=== PATIENT | male | born 1965 | race Two or more races ===

== ENCOUNTER 2017-01-30 11:58 | Inpatient (IN) | payer MEDICAID ==
[~2017-01-30] VITALS: Ht 175.3 cm; Wt 66.7 kg
--- NOTE | 2017-01-30 12:32 | Emergency Room Report ---
History of Present Illness General Chief Complaint: Chest Pain Source: Patient Present Illness HPI 51YOM walk in with 2 days left arm/leg weakness "like its asleep." No facial droop or slurred speech Also with 1 day of intermittent substernal non-radiating chest pain and dizziness No assoc SOB, nausea/vomiting Denies other medical problems, previous PR, CVA Allergies: Coded Allergies: No Known Allergies (Unverified , 01/30/17) Patient History Past Medical History: none Past Surgical History: none Pertinent Family History: none Social History: Denies: alcohol use, drug use, smoking Immunizations: UTD Reviewed Nursing Documentation: PMH: Agreed, PSxH: Agreed Nursing Documentation-PMH Past Medical History: No History, Except For Hx Diabetes: No - pre diabetic Review of Systems All Other Systems: negative except mentioned in HPI Physical Exam Vital Signs Date Time Temp Pulse Resp B/P Pulse Ox O2 Delivery O2 Flow Rate FiO2 01/30/17 12:08 98.2 73 16 99/64 96 Room Air Sp02 EP Interpretation: reviewed, normal General Appearance: normal inspection, well appearing, no apparent distress, alert, GCS 15, non-toxic Head: normocephalic, atraumatic Eyes: bilateral eye EOMI, bilateral eye PERRL ENT: normal ENT inspection, hearing grossly normal, normal voice Neck: normal inspection, full range of motion, supple, no bony tend Respiratory: normal inspection, lungs clear, normal breath sounds, no respiratory distress, no retraction, no wheezing Cardiovascular #1: regular rate, rhythm, no edema Gastrointestinal: normal inspection, normal bowel sounds, non tender, soft, no guarding, no hernia Genitourinary: no CVA tenderness Musculoskeletal: normal inspection, back normal, normal range of motion, Endy' s Sign negative Neurologic: normal inspection, alert, responsive, data power consultant III-XII nml as tested, speech normal, other - NIHSS1 Psychiatric: normal inspection, judgement/insight normal, mood/affect normal Skin: normal inspection, normal color, no rash Medical Decision Making Diagnostic Impression: Primary Impression: Chest pain Qualified Codes: R07.9 - Chest pain, unspecified Additional Impression: Left-sided muscle weakness ER Course Left sided weakness - 2 days ago - VSS Afebrile - NIHHSS 1 now, slight decrease in strength to left side - Possible CVA - CT scanner out of service. MRI ordered but techs unable to come in - Admitted for secondary CVA management/prevention Chest pain - ECG NSR. No ischemia - CKMB and Troponin are send outs given broken Troponin machine - results pending - Signed out to DR Du to followup troponin result at 230 - ASA NOT given as patient also here for CVA 2 days ago. Without available CT or MRI I do not know for certain patient does not have hemorrhagic CVA. Endorsed to DR Street for tele admit for ACS rule out and secondary CVA management at 224pm EKG Diagnostic Results Rate: normal Rhythm: NSR ST Segments: no acute changes ASA given to the pt in ED: No Rhythm Strip Diag. Results EP Interpretation: yes Rate: 60 Rhythm: NSR, no PVC's, no ectopy Chest X-Ray Diagnostic Results Chest X-Ray Diagnostic Results : Chest X-Ray Ordered: Yes # of Views/Limited/Complete: 1 View Indication: Chest Pain EP Interpretation: Yes Interpretation: no consolidation, no effusion, no pneumothorax, no acute cardiopulmonary disease Impression: No acute disease Interpreting ER Provider: Electronically signed by Dr Carlos Last Vital Signs Date Time Temp Pulse Resp B/P Pulse Ox O2 Delivery O2 Flow Rate FiO2 01/30/17 12:08 98.2 73 16 99/64 96 Room Air Status: improved Disposition: ADMITTED INPATIENT Condition: Serious NUSRAT CARLOS M.D. Jan 30, 2017 12:32
[2017-01-30 12:56] VITALS: BP 115/67
[2017-01-30 13:19] LABS: BASOPHILS % (AUTO) 1.2 % (0.0-2.0); EOSINOPHILS % (AUTO) 0.7 % (0.0-3.0); LYMPHOCYTES % (AUTO) 28.6 % (20.0-45.0); MEAN CORPUSCULAR HGB CONC 33.1 G/DL (32.0-36.0); MEAN CORPUSCULAR VOLUME 91 FL (80-99); MEAN PLATELET VOLUME 7.2 FL (6.5-10.1); MONOCYTES % (AUTO) 8.4 % (1.0-10.0); NEUTROPHILS % (AUTO) 61.1 % (45.0-75.0); PLATELET COUNT 236 K/UL (150-450); RED CELL DISTRIBUTION WIDTH 10.6 % (11.6-14.8); WHITE BLOOD COUNT 7.2 K/UL (4.8-10.8)
[2017-01-30 13:27] LABS: ALANINE AMINOTRANSFERASE 14 U/L (3-41); ASPARTATE AMINO TRANSFERASE 21 U/L (5-40); CALCIUM 10.1 mg/dL (8.6-10.2); CARBON DIOXIDE 29 mEQ/L (20-30); CREATININE 0.8 mg/dL (0.7-1.2); GLOMERULAR FILTRATION RATE > 60 mL/min (>60); TOTAL PROTEIN 7.9 g/dL (6.6-8.7)
[2017-01-30 13:28] LABS: ALBUMIN/GLOBULIN RATIO 1.3 (1.0-2.7); ANION GAP 13 (5-15); CHLORIDE 98 mEQ/L (98-107); HEMOLYSIS 5; POTASSIUM 4.4 mEQ/L (3.4-4.9); SODIUM 140 mEQ/L (135-145)
[2017-01-30] MEDS ORDERED: MAGNESIUM27 MG PO (14:01)
[2017-01-30] MEDS ORDERED: LANSOPRAZOLE15 MG ORAL (14:01)
[2017-01-30 14:22] VITALS: BP 127/72
[2017-01-30] MEDS ORDERED: Nitroglycerin Subl 0.4mg tab (Bottle Of 25) SL PRN (15:15)
[2017-01-30] MEDS ORDERED: Promethazine/Codeine 5ml UD ORAL PRN (15:15)
[2017-01-30] MEDS ORDERED: LORazepam Inj 2mg/ml 1ml IV PRN (15:15)
[2017-01-30] MEDS ORDERED: Morphine Sulfate 2mg/ml Inj IVP PRN (15:15)
[2017-01-30] MEDS ORDERED: DuoNeb 0.5-3(2.5)mg/3ml neb HHN PRN (15:15)
[2017-01-30] MEDS ORDERED: Mylanta II UD 30ml ORAL PRN (15:15)
[2017-01-30 15:53] LABS: TROPONIN I < 0.30 ng/mL (<=0.30)
[2017-01-30 16:41] VITALS: BP 115/78
[2017-01-30] MEDS: D5 1/2NS 1,000 ML IV SCH (17:12)
[2017-01-30 17:17] LABS: CKMB < 1.5 ng/mL (< 6.7)
--- NOTE | 2017-01-30 17:44 | History and Physical ---
History of Present Illness General Date patient seen: Jan 30, 2017 Time patient seen: 16:30 Reason for Hospitalization: Chest Pain Present Illness HPI 51 y/old male w/out significant PMH presented with 2 days of left arm/leg weakness , felt like "sleepy"" No facial droop no slurred speech no drooling while eating Patient also reported 1 day of intermittent substernal non-radiating chest pain and dizziness No SOB, Workup in ED revealed stable labs and stable VS CT brain unable to be done due to machine being down troponin was sent out results pending ECG with NSR, no ST chnages patient was admitted for further management Allergies: Coded Allergies: No Known Allergies (Unverified , 01/30/17) Medication History Scheduled Aspirin* (Aspir 81*), 81 MG ORAL DAILY, (Reported) Lansoprazole* (Lansoprazole*), 30 MG ORAL DAILY, (Reported) Magnesium Amino Acid Chelate (Magnesium), 25 MG PO DAILY, (Reported) Patient History History Provided By: Patient Healthcare decision maker Resuscitation status Full Code Advanced Directive on File No Review of Systems Constitutional: Reports: no symptoms Eye: Reports: no symptoms ENT: Reports: no symptoms Respiratory: Reports: no symptoms Cardiovascular: Reports: see HPI Gastrointestinal: Reports: no symptoms Genitourinary: Reports: no symptoms Musculoskeletal: Reports: see HPI Skin: Reports: no symptoms Psychiatric: Reports: no symptoms Neurological: Reports: see HPI Endocrine: Reports: no symptoms Hematologic/Lymphatic: Reports: no symptoms Physical Exam General Appearance: WD/WN, no apparent distress, alert Lines, tubes and drains: peripheral HEENT: normocephalic, atraumatic, anicteric, mucous membranes moist, PERRL Neck: non-tender, supple, normal inspection Respiratory/Chest: chest wall non-tender, lungs clear, no respiratory distress , no accessory muscle use Cardiovascular/Chest: normal peripheral pulses, normal rate, regular rhythm, no JVD Abdomen: normal bowel sounds, non tender, soft Extremities: normal range of motion, non-tender, no calf tenderness, normal capillary refill Skin Exam: normal pigmentation, warm/dry Neurologic: seed collector II-XII grossly normal, no motor/sensory deficits, alert, oriented x 3, responsive Musculoskeletal: normal muscle bulk Last 24 Hour Vital Signs Date Time Temp Pulse Resp B/P Pulse Ox O2 Delivery O2 Flow Rate FiO2 01/30/17 17:29 67 01/30/17 16:41 98.2 67 18 115/78 98 Room Air 01/30/17 14:22 98.2 74 15 127/72 100 Room Air 01/30/17 12:56 98.2 70 17 115/67 99 Room Air 01/30/17 12:56 70 17 Room Air 01/30/17 12:08 98.2 73 16 99/64 96 Room Air Laboratory Tests Test 01/30/17 11:45 White Blood Count 7.2 K/UL (4.8-10.8) Red Blood Count 5.40 M/UL (4.70-6.10) Hemoglobin 16.2 G/DL (14.2-18.0) Hematocrit 48.9 % (42.0-52.0) Mean Corpuscular Volume 91 FL (80-99) Mean Corpuscular Hemoglobin 30.0 PG (27.0-31.0) Mean Corpuscular Hemoglobin Concent 33.1 G/DL (32.0-36.0) Red Cell Distribution Width 10.6 % (11.6-14.8) L Platelet Count 236 K/UL (150-450) Mean Platelet Volume 7.2 FL (6.5-10.1) Neutrophils (%) (Auto) 61.1 % (45.0-75.0) Lymphocytes (%) (Auto) 28.6 % (20.0-45.0) Monocytes (%) (Auto) 8.4 % (1.0-10.0) Eosinophils (%) (Auto) 0.7 % (0.0-3.0) Basophils (%) (Auto) 1.2 % (0.0-2.0) Sodium Level 140 mEQ/L (135-145) Potassium Level 4.4 mEQ/L (3.4-4.9) Chloride Level 98 mEQ/L (98-107) Carbon Dioxide Level 29 mEQ/L (20-30) Anion Gap 13 (5-15) Blood Urea Nitrogen 9 mg/dL (7-23) Creatinine 0.8 mg/dL (0.7-1.2) Estimat Glomerular Filtration Rate > 60 mL/min (>60) Glucose Level 104 mg/dL (74-106) Calcium Level 10.1 mg/dL (8.6-10.2) Total Bilirubin 0.8 mg/dL (0.0-1.2) Aspartate Amino Transf (AST/SGOT) 21 U/L (5-40) Alanine Aminotransferase (ALT/SGPT) 14 U/L (3-41) Alkaline Phosphatase 118 U/L (40-129) Total Creatine Kinase 51 U/L (38-174) Creatine Kinase MB < 1.5 ng/mL (< 6.7) Creatine Kinase MB Relative Index Troponin I < 0.30 ng/mL (<=0.30) Total Protein 7.9 g/dL (6.6-8.7) Albumin 4.5 g/dL (3.5-5.2) Globulin 3.4 g/dL Albumin/Globulin Ratio 1.3 (1.0-2.7) Height (Feet): 5 Height (Inches): 9.00 Weight (Pounds): 147 Medications Current Medications Medications (Trade) Dose Ordered Sig/Yesi Route PRN Reason Start Time Stop Time Status Last Admin Dose Admin Acetaminophen (Tylenol) 650 mg Q4H PRN ORAL T>100.5 01/30/17 15:15 03/01/17 15:14 Al Hydroxide/Mg Hydroxide (Mylanta II) 30 ml Q6H PRN ORAL dyspepsia 01/30/17 15:15 03/01/17 15:14 Albuterol/ Ipratropium (DuoNeb 0.5-3(2.5)mg/3ml) 3 ml Q4H PRN HHN Shortness of Breath 01/30/17 15:15 02/04/17 15:14 Aspirin (Ecotrin) 81 mg DAILY ORAL 01/31/17 09:00 03/02/17 08:59 Clonidine HCl (Catapres) 0.1 mg Q4H PRN ORAL SBP > 160 mmHg 01/30/17 15:15 03/01/17 15:14 Dextrose (Dextrose 50%) STAT PRN IV Hypoglycemia 01/30/17 15:15 03/01/17 15:14 Dextrose/Sodium Chloride (D5 0.45% NS) 1,000 ml @ 50 mls/hr Q20H IV 01/30/17 16:00 03/01/17 15:59 01/30/17 17:12 Heparin Sodium (Porcine) (Heparin 5000 units/ml) 5,000 units EVERY 12 HOURS SUBQ 01/30/17 21:00 03/01/17 20:59 Lorazepam (Ativan 2mg/ml 1ml) 0.5 mg Q4H PRN IV For Anxiety 01/30/17 15:15 02/06/17 15:14 Morphine Sulfate (Morphine Sulfate) 1 mg Q4H PRN IVP Severe Pain (Pain Scale 7-10) 01/30/17 15:15 02/06/17 15:14 Nitroglycerin (Ntg) 0.4 mg Q5M X 3 DOSES PRN SL Prn Chest Pain 01/30/17 15:15 03/01/17 15:14 Ondansetron HCl (Zofran) 4 mg Q6H PRN IVP Nausea & Vomiting 01/30/17 15:15 03/01/17 15:14 Polyethylene Glycol (Miralax) 17 gm HSPRN PRN ORAL Constipation 01/30/17 21:00 03/01/17 20:59 Promethazine HCl/ Codeine (Phenergan with Codeine) 5 ml Q4H PRN ORAL For Cough 01/30/17 15:15 03/01/17 15:14 Temazepam (Restoril) 15 mg HSPRN PRN ORAL Insomnia 01/30/17 21:00 02/06/17 20:59 Assessment/Plan Assessment/Plan ASSESSMENT chest pain r/o ACS left side muscle weakness possible TIA r/o CVA PLAN OF CARE tele serial troponin ( first troponin back-negative) ECHO cardio eval start ASA lipid panel in am CT head if machine will start working, MRI brain on Wednesday neuro eval Carotid Duplex PT/OT/ST eval no drooling will start soft diet, BSSE can be done until Wednesday venous Duplex BLE DVT prophylaxis BP stable O2 prn to keep sat above 92% Bowel regimen pain management case discussed and evaluated by supervising physician Kirby (Dasia)Eli NP Jan 30, 2017 17:44
--- NOTE | 2017-01-30 18:10 | Cardiology Progress Note ---
Assessment/Plan Assessment/Plan [id number] Objective Last 24 Hour Vital Signs Date Time Temp Pulse Resp B/P Pulse Ox O2 Delivery O2 Flow Rate FiO2 01/30/17 17:29 67 01/30/17 16:41 98.2 67 18 115/78 98 Room Air 01/30/17 14:22 98.2 74 15 127/72 100 Room Air 01/30/17 12:56 98.2 70 17 115/67 99 Room Air 01/30/17 12:56 70 17 Room Air 01/30/17 12:08 98.2 73 16 99/64 96 Room Air Laboratory Tests Test 01/30/17 11:45 White Blood Count 7.2 K/UL (4.8-10.8) Red Blood Count 5.40 M/UL (4.70-6.10) Hemoglobin 16.2 G/DL (14.2-18.0) Hematocrit 48.9 % (42.0-52.0) Mean Corpuscular Volume 91 FL (80-99) Mean Corpuscular Hemoglobin 30.0 PG (27.0-31.0) Mean Corpuscular Hemoglobin Concent 33.1 G/DL (32.0-36.0) Red Cell Distribution Width 10.6 % (11.6-14.8) L Platelet Count 236 K/UL (150-450) Mean Platelet Volume 7.2 FL (6.5-10.1) Neutrophils (%) (Auto) 61.1 % (45.0-75.0) Lymphocytes (%) (Auto) 28.6 % (20.0-45.0) Monocytes (%) (Auto) 8.4 % (1.0-10.0) Eosinophils (%) (Auto) 0.7 % (0.0-3.0) Basophils (%) (Auto) 1.2 % (0.0-2.0) Sodium Level 140 mEQ/L (135-145) Potassium Level 4.4 mEQ/L (3.4-4.9) Chloride Level 98 mEQ/L (98-107) Carbon Dioxide Level 29 mEQ/L (20-30) Anion Gap 13 (5-15) Blood Urea Nitrogen 9 mg/dL (7-23) Creatinine 0.8 mg/dL (0.7-1.2) Estimat Glomerular Filtration Rate > 60 mL/min (>60) Glucose Level 104 mg/dL (74-106) Calcium Level 10.1 mg/dL (8.6-10.2) Total Bilirubin 0.8 mg/dL (0.0-1.2) Aspartate Amino Transf (AST/SGOT) 21 U/L (5-40) Alanine Aminotransferase (ALT/SGPT) 14 U/L (3-41) Alkaline Phosphatase 118 U/L (40-129) Total Creatine Kinase 51 U/L (38-174) Creatine Kinase MB < 1.5 ng/mL (< 6.7) Creatine Kinase MB Relative Index Troponin I < 0.30 ng/mL (<=0.30) Total Protein 7.9 g/dL (6.6-8.7) Albumin 4.5 g/dL (3.5-5.2) Globulin 3.4 g/dL Albumin/Globulin Ratio 1.3 (1.0-2.7) TENNILLE WILL Jan 30, 2017 18:10
[2017-01-30 20:36] VITALS: BP 118/69
[2017-01-30] MEDS: Heparin 5000 units/ml inj SUBQ SCH (20:37)
[2017-01-30] MEDS ORDERED: ASPIR 8181 MG ORAL (20:45)
[2017-01-30] MEDS ORDERED: Miralax 17gm pkt ORAL PRN (21:00)
--- NOTE | 2017-01-30 22:15 | Consultation ---
DATE OF CONSULTATION: 01/30/2017 CARDIOLOGY CONSULTATION CONSULTING PHYSICIAN: Jp Armstrong M.D. REFERRING PHYSICIAN: Tamara Street M.D. REASON FOR REFERRAL: Chest pain and stroke. HISTORY OF PRESENT ILLNESS: This is an unfortunate middle-aged gentleman, who since for the past few days had some tingling sensation in the left arm and left leg and apparently it has gotten worse. He has some dizziness and finally presented to the hospital with a concern about possibility of a stroke. He also does describe some episodes of burning in his chest when he drinks something and at times a shock sensation at the right side of the chest as well, none of these he has had in the past few days although he has had those before. He usually is active and even plays soccer without having any chest pain or shortness of breath. There is no PND. There is no orthopnea. No palpitations. No dizziness or lightheadedness on standing position. PAST MEDICAL HISTORY: Prediabetic. No high blood pressure. No heart attack. No cancer. No stroke. No hepatitis. 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 No ulcers. No kidney problems, liver problems, thyroid problems, anemia, or arthritis. ALLERGIES: He is not allergic to any medications. SOCIAL HISTORY: He does not smoke or drink alcoholic beverages or use drugs, not for many years. REVIEW OF SYSTEMS: Gastrointestinal: Negative. Genitourinary: Negative. Pulmonary: Negative although he has occasional bloody sputum. Constitutional: Negative. Neurologic: As mentioned in the history of present illness with right upper extremity numbness and tingling and maybe weakness. PHYSICAL EXAMINATION: GENERAL: Shows to be thin middle-aged gentleman, in no apparent respiratory distress. NECK: Supple. No jugular venous distention. LUNGS: Clear to auscultation and percussion. CARDIAC: S1 is normal. S2 is normal. Regular rate and rhythm. No heaves, thrills, or gallops noted. ABDOMEN: Soft and nontender. Positive bowel sounds. EXTREMITIES: There is no clubbing, cyanosis, or edema. NEUROLOGIC: He is awake, alert, and responsive. His left upper extremity appears to move, but feels weaker than the right upper extremity. LABORATORY DATA: His cardiac enzymes are negative. Sodium 141, potassium 4.4, chloride 98, bicarb 28, BUN of 9, creatinine 0.8, and glucose of 104. Calcium is 10.1. Liver function tests are otherwise unremarkable. White count of 7.2, hemoglobin 16.2, and platelet count 236,000. His electrocardiogram showed normal sinus rhythm, normal QRS axis, and no ST or T-wave abnormalities. ASSESSMENT AND PLAN: 1. Weakness and tingling in the upper extremity suggestive of cerebrovascular accident. 2. Atypical chest pain. 3. History of positive PPD. Apparently, the CT scan is down here and he is not able to exclude a hemorrhagic cerebrovascular accident; therefore, aspirin has not been provided by the emergency room physician nor treating physician here. From cardiac point of view, his pains are very atypical. His EKG is unremarkable. Troponin is negative. At the time of admission, he has had the last discomfort approximately two days ago, but he is usually active and plays soccer without any discomfort at all. Therefore, likelihood of this coronary syndrome is low. Nevertheless in light of all the abnormalities, he will be observed overnight. He will have an echocardiogram for evaluation of left ventricular systolic function and as part of the workup of his possible cerebrovascular accident. I will follow the patient along with you. Jp Armstrong M.D. DR: ANDREE JOB#: [id number] CC:
[2017-01-31] VITALS (7 sets, daily range): BP systolic 101–111; BP diastolic 53–64
[2017-01-31 07:18] LABS: BASOPHILS % (AUTO) 0.8 % (0.0-2.0); EOSINOPHILS % (AUTO) 1.1 % (0.0-3.0); LYMPHOCYTES % (AUTO) 29.9 % (20.0-45.0); MEAN CORPUSCULAR HEMOGLOBIN 30.8 PG (27.0-31.0); MEAN CORPUSCULAR HGB CONC 33.8 G/DL (32.0-36.0); MEAN CORPUSCULAR VOLUME 91 FL (80-99); MEAN PLATELET VOLUME 8.4 FL (6.5-10.1); MONOCYTES % (AUTO) 8.5 % (1.0-10.0); NEUTROPHILS % (AUTO) 59.8 % (45.0-75.0); PLATELET COUNT 223 K/UL (150-450); RED BLOOD COUNT 4.96 M/UL (4.70-6.10); RED CELL DISTRIBUTION WIDTH 10.5 % (11.6-14.8); WHITE BLOOD COUNT 6.5 K/UL (4.8-10.8)
[2017-01-31 07:38] LABS: PROTHROMBIN TIME 10.5 SEC (9.30-11.50)
[2017-01-31 07:42] LABS: ALANINE AMINOTRANSFERASE 13 U/L (3-41); ALBUMIN/GLOBULIN RATIO 1.1 (1.0-2.7); ANION GAP 12 (5-15); ASPARTATE AMINO TRANSFERASE 18 U/L (5-40); CALCIUM 9.8 mg/dL (8.6-10.2); CARBON DIOXIDE 29 mEQ/L (20-30); CHLORIDE 99 mEQ/L (98-107); CREATININE 0.8 mg/dL (0.7-1.2); GLOMERULAR FILTRATION RATE > 60 mL/min (>60); HEMOLYSIS 6; POTASSIUM 4.1 mEQ/L (3.4-4.9); SODIUM 140 mEQ/L (135-145); TOTAL PROTEIN 7.4 g/dL (6.6-8.7)
[2017-01-31 08:29] LABS: TROPONIN I < 0.30 ng/mL (<=0.30)
[2017-01-31 08:32] LABS: CHOLESTEROL 197 mg/dL (< 200); CHOLESTEROL/HDL RATIO 3.9 (3.3-4.4); LDL CHOLESTEROL (CALC.) 126 mg/dL (60-99)
[2017-01-31] MEDS: Aspirin EC 81mg tab ORAL SCH (08:43)
[2017-01-31] MEDS: Heparin 5000 units/ml inj SUBQ SCH ×2 (08:46→21:17)
[2017-01-31 08:57] LABS: TROPONIN I < 0.30 ng/mL (<=0.30)
[2017-01-31] MEDS: D5 1/2NS 1,000 ML IV SCH (12:30)
--- NOTE | 2017-01-31 14:04 | Cardiology Progress Note ---
Assessment/Plan Assessment/Plan 1. Weakness and tingling in the upper extremity suggestive of cerebrovascular accident. 2. Atypical chest pain. 3. History of positive PPD tele neg bp is on carol lwoer side on ivf echo prelim neg neuro srivastava needed Subjective Cardiovascular: Denies: chest pain, lightheadedness Respiratory: Denies: shortness of breath Gastrointestinal/Abdominal: Denies: abdominal pain Genitourinary: Denies: burning Objective Last 24 Hour Vital Signs Date Time Temp Pulse Resp B/P Pulse Ox O2 Delivery O2 Flow Rate FiO2 01/31/17 12:00 98.2 57 20 103/60 97 Room Air 01/31/17 11:43 59 01/31/17 08:00 97.5 57 20 103/53 96 Room Air 01/31/17 07:50 58 01/31/17 04:00 97.6 56 20 102/64 98 Nasal Cannula 2.0 01/31/17 04:00 54 01/31/17 00:00 61 01/31/17 00:00 97.9 65 20 107/64 97 Room Air 01/30/17 20:36 98.2 65 18 118/69 98 Room Air 01/30/17 20:00 69 01/30/17 17:29 67 01/30/17 16:42 98.2 67 18 115/78 98 Room Air 01/30/17 16:41 98.2 67 18 115/78 98 Room Air 01/30/17 14:22 98.2 74 15 127/72 100 Room Air General Appearance: alert Neck: no JVD Cardiovascular: normal rate, regular rhythm Respiratory/Chest: lungs clear, normal breath sounds Abdomen: normal bowel sounds, non tender, soft Extremities: no swelling Intake and Output 01/30/17 01/31/17 19:00 07:00 Intake Total 200 ml 650 ml Balance 200 ml 650 ml Intake Oral 150 ml IV Total 50 ml 650 ml # Voids 3 Laboratory Tests Test 01/31/17 05:45 01/31/17 08:20 White Blood Count 6.5 K/UL (4.8-10.8) Red Blood Count 4.96 M/UL (4.70-6.10) Hemoglobin 15.3 G/DL (14.2-18.0) Hematocrit 45.2 % (42.0-52.0) Mean Corpuscular Volume 91 FL (80-99) Mean Corpuscular Hemoglobin 30.8 PG (27.0-31.0) Mean Corpuscular Hemoglobin Concent 33.8 G/DL (32.0-36.0) Red Cell Distribution Width 10.5 % (11.6-14.8) L Platelet Count 223 K/UL (150-450) Mean Platelet Volume 8.4 FL (6.5-10.1) Neutrophils (%) (Auto) 59.8 % (45.0-75.0) Lymphocytes (%) (Auto) 29.9 % (20.0-45.0) Monocytes (%) (Auto) 8.5 % (1.0-10.0) Eosinophils (%) (Auto) 1.1 % (0.0-3.0) Basophils (%) (Auto) 0.8 % (0.0-2.0) Prothrombin Time 10.5 SEC (9.30-11.50) Prothromb Time International Ratio 1.0 (0.9-1.1) Activated Partial Thromboplast Time 29 SEC (23-33) Sodium Level 140 mEQ/L (135-145) Potassium Level 4.1 mEQ/L (3.4-4.9) Chloride Level 99 mEQ/L (98-107) Carbon Dioxide Level 29 mEQ/L (20-30) Anion Gap 12 (5-15) Blood Urea Nitrogen 13 mg/dL (7-23) Creatinine 0.8 mg/dL (0.7-1.2) Estimat Glomerular Filtration Rate > 60 mL/min (>60) Glucose Level 101 mg/dL (74-106) Calcium Level 9.8 mg/dL (8.6-10.2) Total Bilirubin 0.6 mg/dL (0.0-1.2) Aspartate Amino Transf (AST/SGOT) 18 U/L (5-40) Alanine Aminotransferase (ALT/SGPT) 13 U/L (3-41) Alkaline Phosphatase 104 U/L (40-129) Troponin I < 0.30 ng/mL (<=0.30) < 0.30 ng/mL (<=0.30) Total Protein 7.4 g/dL (6.6-8.7) Albumin 4.0 g/dL (3.5-5.2) Globulin 3.4 g/dL Albumin/Globulin Ratio 1.1 (1.0-2.7) Triglycerides Level 99 mg/dL (< 150) Cholesterol Level 197 mg/dL (< 200) LDL Cholesterol 126 mg/dL (60-99) H HDL Cholesterol 51 mg/dL (> 60) Cholesterol/HDL Ratio 3.9 (3.3-4.4) Thyroid Stimulating Hormone (TSH) 1.740 uIU/mL (0.300-4.500) Ammonia 33 umol/L (16-60) TENNILLE WILL Jan 31, 2017 14:04
--- NOTE | 2017-01-31 14:40 | Pulmonology Progress Note ---
Assessment/Plan Assessment/Plan ASSESSMENT chest pain r/o ACS left side muscle weakness possible TIA r/o CVA hypercholesteremia PLAN OF CARE tele serial troponin x3 negative ECG no ST changes patient was ruled out for ACS ECHO with pEF cardio eval appreciated chest pain atypical as per cardio started on ASA lipid panel with elevated LDL, started on low dose statin CT head if machine will start working, MRI brain on Wednesday neuro eval pending Carotid Duplex PT/OT/ST eval no drooling started on soft diet, BSSE Wednesday venous Duplex BLE DVT prophylaxis BP stable O2 prn to keep sat above 92% Bowel regimen pain management dc plan if cleared by neuro tomorrow case discussed and evaluated by supervising physician Subjective Allergies: Coded Allergies: No Known Allergies (Unverified , 01/30/17) Subjective no dizziness, no blackouts, no new weakness still with occasional chest discomfort, no associated SOB Objective Last 24 Hour Vital Signs Date Time Temp Pulse Resp B/P Pulse Ox O2 Delivery O2 Flow Rate FiO2 01/31/17 12:00 98.2 57 20 103/60 97 Room Air 01/31/17 11:43 59 01/31/17 08:00 97.5 57 20 103/53 96 Room Air 01/31/17 07:50 58 01/31/17 04:00 97.6 56 20 102/64 98 Nasal Cannula 2.0 01/31/17 04:00 54 01/31/17 00:00 61 01/31/17 00:00 97.9 65 20 107/64 97 Room Air 01/30/17 20:36 98.2 65 18 118/69 98 Room Air 01/30/17 20:00 69 01/30/17 17:29 67 01/30/17 16:42 98.2 67 18 115/78 98 Room Air 01/30/17 16:41 98.2 67 18 115/78 98 Room Air Intake and Output 01/30/17 01/31/17 19:00 07:00 Intake Total 200 ml 650 ml Balance 200 ml 650 ml Intake Oral 150 ml IV Total 50 ml 650 ml # Voids 3 Objective General Appearance: WD/WN, no apparent distress, alert Lines, tubes and drains: peripheral HEENT: normocephalic, atraumatic, anicteric, mucous membranes moist, PERRL Neck: non-tender, supple, normal inspection Respiratory/Chest: chest wall non-tender, lungs clear, no respiratory distress , no accessory muscle use Cardiovascular/Chest: normal peripheral pulses, normal rate, regular rhythm, no JVD Abdomen: normal bowel sounds, non tender, soft Extremities: normal range of motion, non-tender, no calf tenderness, normal capillary refill Skin Exam: normal pigmentation, warm/dry Neurologic: director environmental II-XII grossly normal, no motor/sensory deficits, alert, oriented x 3, responsive Musculoskeletal: normal muscle bulk Laboratory Tests 01/31/17 05:45: White Blood Count 6.5, Red Blood Count 4.96, Hemoglobin 15.3, Hematocrit 45.2, Mean Corpuscular Volume 91, Mean Corpuscular Hemoglobin 30.8, Mean Corpuscular Hemoglobin Concent 33.8, Red Cell Distribution Width 10.5L, Platelet Count 223, Mean Platelet Volume 8.4, Neutrophils (%) (Auto) 59.8, Lymphocytes (%) (Auto) 29.9, Monocytes (%) (Auto) 8.5, Eosinophils (%) (Auto) 1.1, Basophils (%) (Auto ) 0.8, Prothrombin Time 10.5, Prothromb Time International Ratio 1.0, Activated Partial Thromboplast Time 29, Sodium Level 140, Potassium Level 4.1, Chloride Level 99, Carbon Dioxide Level 29, Anion Gap 12, Blood Urea Nitrogen 13, Creatinine 0.8, Estimat Glomerular Filtration Rate > 60, Glucose Level 101, Calcium Level 9.8, Total Bilirubin 0.6, Aspartate Amino Transf (AST/SGOT) 18, Alanine Aminotransferase (ALT/SGPT) 13, Alkaline Phosphatase 104, Troponin I < 0.30, Total Protein 7.4, Albumin 4.0, Globulin 3.4, Albumin/Globulin Ratio 1.1, Triglycerides Level 99, Cholesterol Level 197, LDL Cholesterol 126H, HDL Cholesterol 51, Cholesterol/HDL Ratio 3.9, Thyroid Stimulating Hormone (TSH) 1.740 01/31/17 08:20: Troponin I < 0.30, Ammonia 33 Current Medications Medications (Trade) Dose Ordered Sig/Yesi Route PRN Reason Start Time Stop Time Status Last Admin Dose Admin Acetaminophen (Tylenol) 650 mg Q4H PRN ORAL T>100.5 01/30/17 15:15 03/01/17 15:14 Al Hydroxide/Mg Hydroxide (Mylanta II) 30 ml Q6H PRN ORAL dyspepsia 01/30/17 15:15 03/01/17 15:14 Albuterol/ Ipratropium (DuoNeb 0.5-3(2.5)mg/3ml) 3 ml Q4H PRN HHN Shortness of Breath 01/30/17 15:15 02/04/17 15:14 Aspirin (Ecotrin) 81 mg DAILY ORAL 01/31/17 09:00 03/02/17 08:59 Clonidine HCl (Catapres) 0.1 mg Q4H PRN ORAL SBP > 160 mmHg 01/30/17 15:15 03/01/17 15:14 Dextrose (Dextrose 50%) STAT PRN IV Hypoglycemia 01/30/17 15:15 03/01/17 15:14 Dextrose/Sodium Chloride (D5 0.45% NS) 1,000 ml @ 50 mls/hr Q20H IV 01/30/17 16:00 03/01/17 15:59 01/31/17 12:30 Heparin Sodium (Porcine) (Heparin 5000 units/ml) 5,000 units EVERY 12 HOURS SUBQ 01/30/17 21:00 03/01/17 20:59 01/30/17 20:37 Lorazepam (Ativan 2mg/ml 1ml) 0.5 mg Q4H PRN IV For Anxiety 01/30/17 15:15 02/06/17 15:14 Morphine Sulfate (Morphine Sulfate) 1 mg Q4H PRN IVP Severe Pain (Pain Scale 7-10) 01/30/17 15:15 02/06/17 15:14 Nitroglycerin (Ntg) 0.4 mg Q5M X 3 DOSES PRN SL Prn Chest Pain 01/30/17 15:15 03/01/17 15:14 Ondansetron HCl (Zofran) 4 mg Q6H PRN IVP Nausea & Vomiting 01/30/17 15:15 03/01/17 15:14 Polyethylene Glycol (Miralax) 17 gm HSPRN PRN ORAL Constipation 01/30/17 21:00 03/01/17 20:59 Promethazine HCl/ Codeine (Phenergan with Codeine) 5 ml Q4H PRN ORAL For Cough 01/30/17 15:15 03/01/17 15:14 Temazepam (Restoril) 15 mg HSPRN PRN ORAL Insomnia 01/30/17 21:00 02/06/17 20:59 Kirby ([facility])Eli NP Jan 31, 2017 14:40
--- NOTE | 2017-01-31 16:09 | Cardiology Report ---
APPROVED REPORT EXAM: Two-dimensional and M-mode echocardiogram with Doppler and color Doppler. INDICATION Left Ventricular Function M-Mode DIMENSIONS IVSd1.0 (0.7-1.1cm)Left Atrium (MM)3.0 (1.6-4.0cm) LVDd5.3 (3.5-5.6cm)Aortic Root2.3 (2.0-3.7cm) PWd0.7 (0.7-1.1cm)Aortic Cusp Exc.2.0 (1.5-2.0cm) LVDs2.8 (2.5-4.0cm) PWs1.4 cm Normal left ventricular chamber size, systolic function and wall motion. Left ventricular ejection fraction estimated to be 55 %. No evidence of ventricular hypertrophy. No evidence of pericardial fat or effusion. All other cardiac chamber sizes are within normal limits. Normal appearing aortic, pulmonic and tricuspid valves. Mildly thickened mitral valve leaflets with normal excursion. IVC dilated at 1.7 cm with physiologic collapse. A color flow and spectral Doppler study was performed and revealed: No aortic regurgitation. No mitral regurgitation. Mitral inflow velocities indicates normal left ventricular diastolic function. Trace tricuspid regurgitation. Tricuspid systolic velocities suggests peak right ventricular systolic pressure of 15 mmHg. No pulmonic regurgitation present.
--- NOTE | 2017-01-31 16:20 | Cardiology Report ---
APPROVED REPORT EKG Measurement Heart [id number] Normal sinus rhythm Normal ECG
[2017-01-31 17:43] LABS: TROPONIN I < 0.30 ng/mL (<=0.30)
[2017-02-01 04:00] VITALS: BP 97/55
[2017-02-01] MEDS: D5 1/2NS 1,000 ML IV SCH (05:42)
[2017-02-01 08:00] VITALS: BP 104/68
[2017-02-01] MEDS: Aspirin EC 81mg tab ORAL SCH (08:02)
[2017-02-01] MEDS: Heparin 5000 units/ml inj SUBQ SCH ×2 (08:05→21:00)
[2017-02-01 12:00] VITALS: BP 90/56
--- NOTE | 2017-02-01 13:22 | Pulmonology Progress Note ---
Assessment/Plan Problems: (1) ACS (acute coronary syndrome) (2) Left-sided muscle weakness (3) GERD (gastroesophageal reflux disease) (4) Costochondritis (5) Neuropathy Assessment/Plan f/u MRI results pt/ot notes appreciated f/u cardio recommendations. dc home if ok with neuro Subjective ROS Limited/Unobtainable: No Respiratory: Reports: no symptoms Cardiovascular: Reports: no symptoms Allergies: Coded Allergies: No Known Allergies (Unverified , 01/30/17) Objective Last 24 Hour Vital Signs Date Time Temp Pulse Resp B/P Pulse Ox O2 Delivery O2 Flow Rate FiO2 02/01/17 12:00 97.5 72 20 90/56 97 Room Air 02/01/17 08:00 97.0 60 20 104/68 96 Room Air 02/01/17 08:00 64 02/01/17 04:00 51 02/01/17 04:00 97.0 55 18 97/55 97 Room Air 02/01/17 00:00 57 01/31/17 23:42 97.6 61 18 101/63 97 Room Air 01/31/17 20:00 97.9 59 18 111/62 96 Room Air 01/31/17 20:00 66 01/31/17 16:00 97.9 59 22 103/64 98 Room Air Intake and Output 01/31/17 02/01/17 19:00 07:00 Intake Total 830 ml 955 ml Balance 830 ml 955 ml Intake Oral 580 ml 390 ml IV Total 250 ml 565 ml # Voids 3 General Appearance: WD/WN HEENT: normocephalic, atraumatic Respiratory/Chest: chest wall non-tender, lungs clear Cardiovascular: normal peripheral pulses, normal rate Abdomen: normal bowel sounds, soft, non tender Extremities: no cyanosis, no clubbing Skin: no rash Laboratory Tests 01/31/17 16:25: Troponin I < 0.30 Current Medications Medications (Trade) Dose Ordered Sig/Yesi Route PRN Reason Start Time Stop Time Status Last Admin Dose Admin Acetaminophen (Tylenol) 650 mg Q4H PRN ORAL T>100.5 01/30/17 15:15 03/01/17 15:14 Al Hydroxide/Mg Hydroxide (Mylanta II) 30 ml Q6H PRN ORAL dyspepsia 01/30/17 15:15 03/01/17 15:14 Albuterol/ Ipratropium (DuoNeb 0.5-3(2.5)mg/3ml) 3 ml Q4H PRN HHN Shortness of Breath 01/30/17 15:15 02/04/17 15:14 Aspirin (Ecotrin) 81 mg DAILY ORAL 01/31/17 09:00 03/02/17 08:59 02/01/17 08:02 Atorvastatin Calcium (Lipitor) 10 mg BEDTIME ORAL 01/31/17 21:00 03/02/17 20:59 01/31/17 21:16 Clonidine HCl (Catapres) 0.1 mg Q4H PRN ORAL SBP > 160 mmHg 01/30/17 15:15 03/01/17 15:14 Dextrose (Dextrose 50%) STAT PRN IV Hypoglycemia 01/30/17 15:15 03/01/17 15:14 Dextrose/Sodium Chloride (D5 0.45% NS) 1,000 ml @ 50 mls/hr Q20H IV 01/30/17 16:00 03/01/17 15:59 02/01/17 05:42 Heparin Sodium (Porcine) (Heparin 5000 units/ml) 5,000 units EVERY 12 HOURS SUBQ 01/30/17 21:00 03/01/17 20:59 02/01/17 08:05 Lorazepam (Ativan 2mg/ml 1ml) 0.5 mg Q4H PRN IV For Anxiety 01/30/17 15:15 02/06/17 15:14 Morphine Sulfate (Morphine Sulfate) 1 mg Q4H PRN IVP Severe Pain (Pain Scale 7-10) 01/30/17 15:15 02/06/17 15:14 Nitroglycerin (Ntg) 0.4 mg Q5M X 3 DOSES PRN SL Prn Chest Pain 01/30/17 15:15 03/01/17 15:14 Ondansetron HCl (Zofran) 4 mg Q6H PRN IVP Nausea & Vomiting 01/30/17 15:15 03/01/17 15:14 Polyethylene Glycol (Miralax) 17 gm HSPRN PRN ORAL Constipation 01/30/17 21:00 03/01/17 20:59 Promethazine HCl/ Codeine (Phenergan with Codeine) 5 ml Q4H PRN ORAL For Cough 01/30/17 15:15 03/01/17 15:14 Temazepam (Restoril) 15 mg HSPRN PRN ORAL Insomnia 01/30/17 21:00 02/06/17 20:59 ELSI VEGAS Feb 01, 2017 13:22
[2017-02-01 16:00] VITALS: BP 102/68
[2017-02-01] MEDS ORDERED: D5 1/2NS 1000ml IV ONE (16:41)
--- NOTE | 2017-02-01 18:30 | Neurology Progress Note ---
Interim History Interim History ROS Limited/Unobtainable: No Objective Physical Exam Last Vital Signs Date Time Temp Pulse Resp B/P Pulse Ox O2 Delivery O2 Flow Rate FiO2 02/01/17 16:00 64 02/01/17 16:00 97.0 20 102/68 96 Room Air 01/31/17 04:00 2.0 Impression/Recommendations Recommendations # [id number] JEAN PIERRE VELEZ Feb 01, 2017 18:30
--- NOTE | 2017-02-01 20:27 | Cardiology Progress Note ---
Assessment/Plan Assessment/Plan 1. Weakness and tingling in the upper extremity suggestive of cerebrovascular accident. 2. Atypical chest pain. 3. History of positive PPD tele neg still sinus bp is better on ivf echo neg neuro srivastava in progress has occasional hemoptysis?? to d/w dr la Subjective Cardiovascular: Denies: chest pain, lightheadedness, palpitations Respiratory: Reports: cough, sputum - blooody a times Gastrointestinal/Abdominal: Denies: abdominal pain Genitourinary: Denies: no symptoms Objective Last 24 Hour Vital Signs Date Time Temp Pulse Resp B/P Pulse Ox O2 Delivery O2 Flow Rate FiO2 02/01/17 16:00 64 02/01/17 16:00 97.0 64 20 102/68 96 Room Air 02/01/17 12:00 67 02/01/17 12:00 97.5 72 20 90/56 97 Room Air 02/01/17 08:00 97.0 60 20 104/68 96 Room Air 02/01/17 08:00 64 02/01/17 04:00 51 02/01/17 04:00 97.0 55 18 97/55 97 Room Air 02/01/17 00:00 57 01/31/17 23:42 97.6 61 18 101/63 97 Room Air General Appearance: no apparent distress, alert Neck: supple Cardiovascular: normal rate, regular rhythm Respiratory/Chest: lungs clear, normal breath sounds Abdomen: normal bowel sounds, non tender, soft Extremities: no swelling Intake and Output 01/31/17 02/01/17 19:00 07:00 Intake Total 830 ml 955 ml Balance 830 ml 955 ml Intake Oral 580 ml 390 ml IV Total 250 ml 565 ml # Voids 3 TENNILLE WILL Feb 01, 2017 20:27
[2017-02-01 20:33] VITALS: BP 111/69
--- NOTE | 2017-02-01 23:00 | Consultation ---
DATE OF CONSULTATION: 02/01/2017 NEUROLOGICAL CONSULTATION CONSULTING PHYSICIAN: Damon Hughes M.D. REQUESTING PHYSICIAN: Tamara Street M.D. HISTORY OF PRESENT ILLNESS: This 51 years old man seen in neurological consultation to evaluate a new onset of left-sided numbness and retrosternal pain. The patient informed me that a few days prior to admission, he developed a what seems sensation of like a sleep in the left arm and left leg. There was also dizziness. He was waiting for improvement, but instead he started to develop a retrosternal burning sensation "like a heart inside" that usually accompanies his meals. Symptoms were not improving. He was sent into emergency room. On admission, his blood pressure was 99/64 and temperature 98.2 degrees. EKG, normal sinus rhythm, rate of 60. Chest x-ray, no acute disease noted. Lab work, this included normal CBC study, normal coagulation panel, normal chemistry panel with normal troponin. Normal TSH. Minor hyperlipidemia with LDL of 126 with normal troponin and ammonia levels. A 2D echocardiogram, no evidence of mural thrombi. He had MRI of the brain, also carotid duplex study, no hemodynamically significant lesions and CT of the brain without contrast, normal study with no evidence of acute intracranial abnormalities. Since admission till present, there was not much of improvement. PAST MEDICAL HISTORY: The patient has a history of prediabetes and hyperlipidemia. MEDICATIONS: His treatment is limited to meclizine, aspirin, lansoprazole, and magnesium supplements. ALLERGIES: None reported. 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 No alcohol. No drug abuse. Nonsmoker. Plays soccer for hobby. FAMILY HISTORY: Noncontributory. REVIEW OF SYSTEMS: The patient concerned with the presence of sensation of sleepiness in the left arm and left leg. Intermittent hot and cold retrosternal sensation attributed to his meals. He denies though headache or dizziness. Denies chest pain. Denies respiratory difficulties. No abdominal pain or discomfort. No urine or bowel incontinence. PHYSICAL EXAMINATION: EXTREMITIES: Upper and lower extremities without clubbing, cyanosis, or edema. PERIPHERAL PULSES: 1+ and symmetric. NEUROLOGIC: Mental Status: He is alert and oriented x3 with no evidence of aphasia or apraxia. Cognitive function normal. Emotional, labile, anxious. Cranial Nerves CRANIAL NERVE II: Pupils both responding to light and accommodation. Extraocular movement intact. No nystagmus. CRANIAL NERVE V: Normal corneal responses. CRANIAL NERVE VII: No facial asymmetry. CRANIAL NERVE VIII: Normal hearing. CRANIAL NERVES IX THROUGH XII: Within normal limits. MOTOR EXAMINATION: Normal muscle tone. Strength 5/5 in all extremities. No involuntary movements. Deep tendon reflexes 1+ symmetric with downgoing toes on both sides. SENSORY EXAMINATION: Normal to pinprick and light touch. Gait is stable. IMPRESSION: 1. New onset of left-sided numbness in the presence of normal nonfocal neurological examination and normal MRI study. This may represent a minor lacunar infarct, right hemispheric versus psychosomatic disorder. 2. Probable gastroesophageal reflux disease. 3. Hyperlipidemia. 4. Prediabetes. RECOMMENDATIONS: 1. Start on statin, atorvastatin 10 mg daily. 2. Ecotrin 81 mg daily. 3. GI workup as outpatient. 4. There is certain amount of anxiety. The patient may respond to use of Ativan 0.25 mg at bedtime. Damon Hughes M.D. DR: Aurelio JOB#: [id number] CC:
[2017-02-02 00:14] VITALS: BP 104/67
[2017-02-02] MEDS: D5 1/2NS 1,000 ML IV SCH (03:14)
[2017-02-02 03:42] VITALS: BP 98/63
[2017-02-02 08:00] VITALS: BP 114/66
[2017-02-02] MEDS: Aspirin EC 81mg tab ORAL SCH (08:23)
[2017-02-02] MEDS: Heparin 5000 units/ml inj SUBQ SCH (09:00)
--- NOTE | 2017-02-02 09:02 | Diagnostic Imaging Report ---
Indication: Dizziness x2 days Technique: Technique: MRI the brain performed utilizing T1 sagittal, T1 axial, T2 axial, T2 FLAIR axial, T2* GRE, and diffusion axial images without gadolinium. Findings: The ventricular system is normal in size and configuration. There is no shift of the midline structures. No abnormal extra-axial fluid collections are identified. Cortical sulci are normal. There are no abnormal areas of increased or decreased signal. There is no evidence of hemorrhage. There are no areas of restricted diffusion. Impression: Normal MRI of the brain without gadolinium. The above report is concordant with preliminary reading by [facility] .
--- NOTE | 2017-02-02 09:03 | Diagnostic Imaging Report ---
Indication: SOB Technique: XRAY CHEST 1 V Comparison:None Findings: The heart is normal in size. There are calcified granulomas in the right apex. Other densities are present in the right apex but it is uncertain whether they are calcified. The remainder the lungs are clear. No pleural fluid. Bones are unremarkable. Impression: Old granulomatous disease. Additional densities in the right apex. It is not certain whether they are calcified. CT may be helpful for better evaluation if clinically warranted. No acute abnormality. Dr. Wray in the emergency room was notified of these findings by phone at 9:26 AM 01/31/2017.
--- NOTE | 2017-02-02 11:39 | Pulmonology Progress Note ---
Assessment/Plan Problems: (1) Hemoptysis (2) ACS (acute coronary syndrome) (3) Left-sided muscle weakness (4) GERD (gastroesophageal reflux disease) (5) Costochondritis (6) Neuropathy Assessment/Plan MRI results pt/ot notes appreciated f/u cardio recommendations. Ct scan of chest stat, if negative pt might go home today Subjective Interval Events: one episode of hemoptysis yesterday, Allergies: Coded Allergies: No Known Allergies (Unverified , 01/30/17) Objective Last 24 Hour Vital Signs Date Time Temp Pulse Resp B/P Pulse Ox O2 Delivery O2 Flow Rate FiO2 02/02/17 08:00 97.7 58 19 114/66 99 Room Air 02/02/17 08:00 62 02/02/17 04:57 48 02/02/17 03:42 97.0 51 20 98/63 97 Room Air 02/02/17 00:55 52 02/02/17 00:14 97.5 55 18 104/67 95 Room Air 02/01/17 20:33 97.2 60 20 111/69 96 Room Air 02/01/17 20:00 74 02/01/17 16:00 64 02/01/17 16:00 97.0 64 20 102/68 96 Room Air 02/01/17 12:00 67 02/01/17 12:00 97.5 72 20 90/56 97 Room Air Intake and Output 02/01/17 02/02/17 19:00 07:00 Intake Total 150 ml Output Total 1750 ml Balance -1750 ml 150 ml IV Total 150 ml Output Urine Total 1750 ml # Voids 3 General Appearance: WD/WN HEENT: normocephalic, atraumatic Respiratory/Chest: chest wall non-tender, lungs clear Cardiovascular: normal peripheral pulses, normal rate Abdomen: normal bowel sounds, soft, non tender Genitourinary: normal external genitalia Extremities: no cyanosis Skin: no rash Current Medications Medications (Trade) Dose Ordered Sig/Yesi Route PRN Reason Start Time Stop Time Status Last Admin Dose Admin Acetaminophen (Tylenol) 650 mg Q4H PRN ORAL T>100.5 01/30/17 15:15 03/01/17 15:14 Al Hydroxide/Mg Hydroxide (Mylanta II) 30 ml Q6H PRN ORAL dyspepsia 01/30/17 15:15 03/01/17 15:14 Albuterol/ Ipratropium (DuoNeb 0.5-3(2.5)mg/3ml) 3 ml Q4H PRN HHN Shortness of Breath 01/30/17 15:15 02/04/17 15:14 Aspirin (Ecotrin) 81 mg DAILY ORAL 01/31/17 09:00 03/02/17 08:59 02/02/17 08:23 Atorvastatin Calcium (Lipitor) 10 mg BEDTIME ORAL 01/31/17 21:00 03/02/17 20:59 02/01/17 21:04 Clonidine HCl (Catapres) 0.1 mg Q4H PRN ORAL SBP > 160 mmHg 01/30/17 15:15 03/01/17 15:14 Dextrose (Dextrose 50%) STAT PRN IV Hypoglycemia 01/30/17 15:15 03/01/17 15:14 Dextrose/Sodium Chloride (D5 0.45% NS) 1,000 ml @ 50 mls/hr Q20H IV 01/30/17 16:00 03/01/17 15:59 02/02/17 03:14 Heparin Sodium (Porcine) (Heparin 5000 units/ml) 5,000 units EVERY 12 HOURS SUBQ 01/30/17 21:00 03/01/17 20:59 02/01/17 08:05 Lorazepam (Ativan 2mg/ml 1ml) 0.5 mg Q4H PRN IV For Anxiety 01/30/17 15:15 02/06/17 15:14 Morphine Sulfate (Morphine Sulfate) 1 mg Q4H PRN IVP Severe Pain (Pain Scale 7-10) 01/30/17 15:15 02/06/17 15:14 Nitroglycerin (Ntg) 0.4 mg Q5M X 3 DOSES PRN SL Prn Chest Pain 01/30/17 15:15 03/01/17 15:14 Ondansetron HCl (Zofran) 4 mg Q6H PRN IVP Nausea & Vomiting 01/30/17 15:15 03/01/17 15:14 Polyethylene Glycol (Miralax) 17 gm HSPRN PRN ORAL Constipation 01/30/17 21:00 03/01/17 20:59 Promethazine HCl/ Codeine (Phenergan with Codeine) 5 ml Q4H PRN ORAL For Cough 01/30/17 15:15 03/01/17 15:14 Temazepam (Restoril) 15 mg HSPRN PRN ORAL Insomnia 01/30/17 21:00 02/06/17 20:59 ELSI VEGAS Feb 02, 2017 11:39
--- NOTE | 2017-02-02 11:41 | Diagnostic Imaging Report ---
APPROVED REPORT CPT Code: 07222 Vascular Symptoms Dizziness and Vertigo CAROTID (BILATERAL) - Imaging reveals no significant plaque within the right and left extracranial carotid arteries. The Doppler spectral flow analysis is within normal limits throughout the extracranial carotid arteries bilaterally. VERTEBRAL- The vertebral arteries are within normal limits.
--- NOTE | 2017-02-02 11:41 | Diagnostic Imaging Report ---
APPROVED REPORT CPT Code: 24935 Present Symptoms Lower Extremity Pain: Bilateral BILATERAL: Imaging reveals a patent deep venous system bilaterally. There is no evidence of thrombus within the femoral, popliteal or tibial segments. The greater saphenous veins are also within normal limits. Doppler indicates normal spontaneous flow within these segments.
[2017-02-02 12:00] VITALS: BP 105/62
--- NOTE | 2017-02-02 12:31 | Cardiology Progress Note ---
Assessment/Plan Assessment/Plan 1. Weakness and tingling in the upper extremity suggestive of cerebrovascular accident. 2. Atypical chest pain. 3. History of positive PPD tele neg still sinus bp is better on ivf echo neg mri neg has occasional hemoptysis?? to d/w dr la asa statin Subjective Cardiovascular: Denies: chest pain, lightheadedness, palpitations Respiratory: Denies: shortness of breath Gastrointestinal/Abdominal: Denies: abdominal pain Genitourinary: Denies: burning Subjective arm is back to normal Objective Last 24 Hour Vital Signs Date Time Temp Pulse Resp B/P Pulse Ox O2 Delivery O2 Flow Rate FiO2 02/02/17 12:00 97.5 58 21 105/62 97 Room Air 02/02/17 08:00 97.7 58 19 114/66 99 Room Air 02/02/17 08:00 62 02/02/17 04:57 48 02/02/17 03:42 97.0 51 20 98/63 97 Room Air 02/02/17 00:55 52 02/02/17 00:14 97.5 55 18 104/67 95 Room Air 02/01/17 20:33 97.2 60 20 111/69 96 Room Air 02/01/17 20:00 74 02/01/17 16:00 64 02/01/17 16:00 97.0 64 20 102/68 96 Room Air General Appearance: no apparent distress, alert Neck: supple Cardiovascular: normal peripheral pulses, normal rate Respiratory/Chest: lungs clear, normal breath sounds Abdomen: normal bowel sounds, non tender, soft Extremities: no swelling Intake and Output 02/01/17 02/02/17 19:00 07:00 Intake Total 150 ml Output Total 1750 ml Balance -1750 ml 150 ml IV Total 150 ml Output Urine Total 1750 ml # Voids 3 TENNILLE WILL Feb 02, 2017 12:31
--- NOTE | 2017-02-02 13:12 | Diagnostic Imaging Report ---
Clinical Indication: COUGH hemoptysis Technique: IV administration nonionic contrast. Spiral acquisition obtained through the chest. Multiplanar reconstructions generated. Total dose length product 627 mGycm. CTDIvol(s) 8, 81, 15 mGy. Dose reduction achieved using automated exposure control Comparison: None Findings: Probable scarring is seen in the right lung apex, with areas of calcification. Calcified granulomatous nodules are also seen slightly more inferiorly, also within the right upper lobe. Minimal scarring is seen at the left lung apex. Minimal atelectasis is seen in the right middle lobe. Minimal atelectasis is seen in the inferior lingula. The remainder of the lungs are clear. No acute infiltrates, effusions, or congestion demonstrated. The heart size is normal. No pericardial effusion. A calcified granulomatous lymph node is seen adjacent to the distal esophagus. There are a few calcified hilar nodes as well. No mediastinal or hilar mass or adenopathy. 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 No axillary or chest wall mass or adenopathy. The bones are unremarkable The included upper abdominal anatomy is remarkable for the presence of a 1 cm cyst in segment 2 of the liver. Impression: Right apical scarring, associated with some parenchymal calcifications, likely on the basis of old granulomatous disease. There are also calcified mediastinal and hilar lymph nodes Minimal left apical scarring also present as well. 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
--- NOTE | 2017-02-04 15:09 | Discharge Summary ---
Discharge Summary Hospital Course Date of Admission Jan 30, 2017 at 16:11 Date of Discharge Feb 02, 2017 at 16:05 Admitting Diagnosis stroke/chest pain HPI Daniel Tapia is a 51 year old male who was admitted on Jan 30, 2017 at 16:11 for Stroke/Chest Pain Hospital Course [id number] Discharge Discharge Disposition Patient was discharged to Home (01) Discharge Diagnoses: Irma Malik NP Feb 04, 2017 15:09
--- NOTE | 2017-02-04 19:15 | Discharge Summary 2 SIG ---
DATE OF ADMISSION: 01/30/2017 DATE OF DISCHARGE: 02/02/2017 CONSULTANTS: 1. Jp Armstrong M.D. 2. Damon Hughes M.D. BRIEF HOSPITAL COURSE: The patient is a 51-year-old male without any significant medical history presented to the ED complaining of two days of left arm and leg weakness that felt like sleepy. There was no facial droop. No slurred speech. No drooling. He also reported one day of intermittent substernal nonradiating chest pain with dizziness. On evaluation at ED, EKG was in normal sinus rhythm. Chest x-ray showed no acute disease. The patient had a slight decrease in strength on the left side of the body. Unable to do CT scan nor MRI, and unable to give aspirin, uncertain if the patient has a hemorrhagic CVA. He was then admitted to telemetry for ACS and possible TIA/CVA. Troponin was negative. He was followed by Cardiology and Neurology. Echocardiogram done showed ejection fraction of 55% with normal left ventricular size, function, and wall motion. The patient had MRI of the brain and also carotid duplex with no hemodynamically significant lesions. Venous duplex of lower extremity was negative for DVT bilaterally. The patient complained of occasional hemoptysis. CT of the chest showed right apical scarring with calcification and old granulomatous disease with calcified mediastinal and hilar lymph nodes. No acute pulmonary process seen. Aspirin and Lipitor was given. He underwent physical therapy and occupational therapy. He was eventually discharged home, advised to follow-up with PMD. FINAL DIAGNOSES: 1. New onset left-sided numbness in presence of normal nonfocal neurological examination and normal MRI study, may represent minor lacunar infarct, right hemispheric region and psychosomatic disorder. 2. Costochondritis. 3. Gastroesophageal reflux disease. 4. Hemoptysis. 5. Neuropathy. 6. History of PPD. DISCHARGE DISPOSITION: The patient was discharged home. DISCHARGE MEDICATIONS: Refer to medication list. Tamara Street M.D. I have been assigned to dictate discharge summary on this account and I was not involved in the patient's management. Irma Malik N.P. DR: RYAN JOB#: [id number] CC: BROWN
== END 2017-02-02 16:05 | disposition home or self-care (01) | DRG 45 ==
LOC: EMR 12:53 → EDBEDREQ 15:25 → 2E 16:11
DX: I63.9 Cerebral infarction, unspecified (principal); R04.2 Hemoptysis; R73.03 Prediabetes; E78.5 Hyperlipidemia, unspecified; M94.0 Chondrocostal junction syndrome [Tietze]; G62.9 Polyneuropathy, unspecified; F44.4 Conversion disorder with motor symptom or deficit; K21.9 Gastro-esophageal reflux disease without esophagitis
CPT/HCPCS: 36415; 70551; 71010; 71260; 80053; 80061; 82140; 82550; 82553; 84443; 84484; 85025; 85610; 85730; 93005; 93306; 93880; 93970